=== PATIENT | female | born 1955 | race American Indian/Alaskan Native ===

== ENCOUNTER 2016-12-14 08:49 | Outpatient (CLI) | payer BC ==
--- NOTE | 2016-12-14 14:57 | Mammography Report ---
BONE DENSITY STUDY: Diabetic. DEFINITIONS: BMD = Bone Mineral Density T-score = BMD related to mean peak bone mass of young adult (mean expressed in Standard Deviation) Z-score = Age matched BMD expressed in SD World Health Organization (WHO) Diagnostic Criteria Normal T-score > -1 SD Osteopenia T-score between -1 and -2.4 SD Osteoporosis T-score -2.5 SD or below FINDINGS: The weighted average BMD of lumbar spine L1-L4 is 1.061 with a T-score of 0.1. The weighted average BMD of the left hip is 0.926 with a T-score of -0.1. IMPRESSION: The patient's average T-score is diagnostic for normal bone density and low relative risk for fracture. NOTE: BMD is not the only risk factor for fracture; also consider factors such as the patient's age, risk of falling, previous osteoporotic fracture, family history of osteoporotic fractures, current smoker, and low body weight. Rivas's triangle is a region of interest in femur, predominantly of trabecular bone. It is not a true anatomic site, and [facility] does not recommend its use clinically.
== END 2016-12-14 08:50 | disposition home or self-care (01) ==
LOC: MAMMO 08:49
PROVIDERS: ATTEND Internal Medicine
DX: Z13.820 Encounter for screening for osteoporosis (principal); E11.9 Type 2 diabetes mellitus without complications; I10 Essential (primary) hypertension; Z78.0 Asymptomatic menopausal state
CPT/HCPCS: 77080

== ENCOUNTER 2017-04-19 08:09 | Outpatient (CLI) | payer BC ==
--- NOTE | 2017-04-19 10:44 | Mammography Report ---
Screening mammotomograms and 2-D images: CC and lateral tomograms are obtained bilaterally with composite 2-D images. Comparison is made to prior exams dating back to 2014. The 2-D images show stable focal asymmetries in the medial and lateral superior right breast. A small stable asymmetry is noted in the left retroareolar region and a stable small grouping of calcifications noted on the left. Tomographic images demonstrate these asymmetries as well as a couple smaller asymmetries in the medial right breast that are not apparent on the 2-D images however the margins are smooth and there are no suspicious characteristics. The previously noted nodules bilaterally likewise have benign characteristics on mammography. CAD used. Impression: Bilateral stable asymmetries. Newly identified right asymmetries on tomography have benign characteristics. Recommendation: Annual mammogram followup. BI-RADS CATEGORY: 2 = Benign ACR BI-RADS MAMMOGRAPHIC CODES: 0 = Needs additional imaging evaluation; 1 = Negative; 2 = Benign; 3 = Probably benign; 4 = Suspicious; 5 = Malignant; 6 = Known biopsy-proven malignancy COMMENT: 1. Dense breast tissue, i.e., adenosis, fibrocystic changes, etc., may obscure an underlying neoplasm. 2. Approximately 10% of cancers are not detected with mammography. 3. A negative mammography report should not delay biopsy if a clinically suspicious mass is present.
== END 2017-04-19 08:10 | disposition home or self-care (01) ==
LOC: MAMMO 08:09
DX: Z12.31 Encounter for screening mammogram for malignant neoplasm of breast (principal)
CPT/HCPCS: 77063; G0202; 77067

== ENCOUNTER 2017-06-11 08:59 | Outpatient (CLI) | payer BC ==
[2017-06-11 09:35] LABS: Alanine Aminotransferase 15 units/L (7-56); Albumin 4.3 g/dL (3.9-5); Albumin/Globulin Ratio 1.4 %; Alkaline Phosphatase 72 units/L (35-129); Anion Gap 15 mmol/L; BUN/Creatinine Ratio 20; Blood Urea Nitrogen 12 mg/dL (7-17); Calcium 9.9 mg/dL (8.4-10.2); Carbon Dioxide 31 mmol/L (22-30); Cholesterol 263 mg/dL (50-199); Glucose 93 mg/dL (65-100); HDL Cholesterol 95 mg/dL (40-59); LDL Cholesterol,Direct 156 mg/dL (50-130); Potassium 3.7 mmol/L (3.6-5.0); Sodium 143 mmol/L (137-145); Total Protein 7.4 g/dL (6.3-8.2); Triglycerides 60 mg/dL (2-149)
== END 2017-06-11 09:00 | disposition home or self-care (01) ==
LOC: LAB 08:59
PROVIDERS: ATTEND Internal Medicine
DX: I10 Essential (primary) hypertension (principal); E78.2 Mixed hyperlipidemia; Z79.899 Other long term (current) drug therapy
CPT/HCPCS: 36415; 80053; 80061